=== PATIENT | male | born 1990 | race Caucasian/White ===

== ENCOUNTER 2017-05-20 03:12 | Inpatient (IN) | payer SELFPAY ==
[2017-05-20] MEDS ORDERED: NS 0.9% 1000 ML* 1,000 ML IV ONE (05:29)
[2017-05-20] MEDS ORDERED: Aspirin Low Dose CHEW TAB* 81 MG PO ONE (05:29)
[2017-05-20 06:18] LABS: Hematocrit 42 % (42-52); Hemoglobin 14.4 g/dl (14.0-18.0); Mean Corpuscular HGB Conc 34 g/dl (31-36); Mean Corpuscular Hemoglobin 29 pg (27-31); Mean Corpuscular Volume 85 fL (80-94); Mean Platelet Volume 9 um3 (7.4-10.4); Red Blood Count 4.97 10^6/ul (4.0-5.4); Red Cell Distribution Width 13 % (10.5-15); White Blood Count 7.8 10^3/ul (3.5-10.8)
[2017-05-20 06:31] LABS: BUN/Creatinine Ratio 16.9 (8-20); Calcium 9.1 mg/dL (8.6-10.3); EGFR African American 169.9 (>60); EGFR Non-African American 132.1 (>60); Globulin 3.6 g/dL (2-4); Potassium 3.4 mmol/L (3.5-5.0); Total Bilirubin 0.8 mg/dL (0.2-1.0); Total Protein 7.6 g/dL (6.4-8.9)
[2017-05-20 06:38] LABS: Troponin I 12.82 ng/mL (<0.04)
[2017-05-20] MEDS ORDERED: Metoprolol Tartrate TAB* 25 MG PO ONE (07:29)
--- NOTE | 2017-05-20 07:38 | ED ---
Mona Aguilera Rebecca, scribed for Selina Jackson MD on 05/20/17 at 0530 . HPI Chest Pain - HPI Summary HPI Summary: Pt is a 27 y/o M who presents to ED c/o CP. Pain began 3 days ago and has been intermittent since onset, worsening this morning at 0100. Pain is in the midsternal region without radiation and is currently not present, though earlier it was moderate, ranked 6/10 in triage and characterized as sharp. Sx aggravated by deep breaths, cough and when a chiropractor pushed on his back, alleviated by nothing. Additionally c/o vomiting, nonproductive cough, fatigue and fever. Reports fever was between 101 and 102. Denies LE pain. SHx smoker (1 PP month). - History of Current Complaint Chief Complaint: EDChestPainROMI Time Seen by Provider: 05/20/17 04:56 Hx Obtained From: Patient, Family/Clinical Laboratory Aide - Onset/Duration: Started Days Ago - 3 days ago, Still Present, Worse Since - This morning at 0100 Timing: Intermittent Initial Severity: Moderate - 6/10 Current Severity: None Pain Intensity: 6 - In triage Pain Scale Used: 0-10 Numeric Chest Pain Location: Mid Sternal Chest Pain Radiates: No Character: Sharp/Stabbing Aggravating Factor(s): Deep Breaths, Other: - Cough, chiropractor applying pressure to back Alleviating Factor(s): Nothing Associated Signs and Symptoms: Positive: Fever, Nonproductive Cough, Vomiting, Other: - Fatigue. Negative: Calf Pain/Swelling - Risk Factors TAD Risk Factors: Smoking AMI/ACS Risk Factors: Smoking - Allergy/Home Medications Allergies/Adverse Reactions: Allergies Allergy/AdvReac Type Severity Reaction Status Date / Time No Known Allergies Allergy Verified 05/20/17 03:18 PMH/Surg Hx/FS Hx/Imm Hx Previously Healthy: Yes Endocrine/Hematology History: Denies: Hx Diabetes Cardiovascular History: Denies: Hx Coronary Artery Disease, Hx Hypertension Infectious Disease History: No Infectious Disease History: Denies: Traveled Outside the [place] in Last 30 Days - Family History Known Family History: Negative: Cardiac Disease - Social History Alcohol Use: None Substance Use Type: Reports: None Smoking Status (MU): Current Some Day Smoker - 1 PP month Review of Systems Positive: Fever, Fatigue Positive: Chest Pain - 3 days, intermittent Positive: Cough Positive: Vomiting Positive: Other - Denies LE pain Neurological: Negative Psychological: Normal All Other Systems Reviewed And Are Negative: Yes Physical Exam Triage Information Reviewed: Yes Vital Signs On Initial Exam: Initial Vitals Temp Pulse Resp BP Pulse Ox 99.2 F 78 20 126/81 100 05/20/17 03:16 05/20/17 03:16 05/20/17 03:16 05/20/17 03:16 05/20/17 03:16 Vital Signs Reviewed: Yes Appearance: Positive: No Pain Distress - pain free when lying still, worse with movement, Well-Nourished, Ill-Appearing Skin: Positive: Skin Color Reflects Adequate Perfusion, Cold, Diaphoretic Head/Face: Positive: Normal Head/Face Inspection Eyes: Positive: Conjunctiva Clear ENT: Positive: Normal ENT inspection Neck: Positive: Supple Respiratory/Lung Sounds: Positive: Clear to Auscultation, Breath Sounds Present , Other - No respiratory distress Cardiovascular: Positive: RRR, Pulses are Symmetrical in both Upper and Lower Extremities, Other - Brisk capillary refill. Negative: Murmur, Rub, Leg Edema Left, Leg Edema Right Abdomen Description: Positive: Nontender, No Organomegaly, Soft. Negative: Distended, Guarding, Splenomegaly Bowel Sounds: Positive: Present Musculoskeletal: Positive: Strength/ROM Intact, Other - no calf tenderness. Negative: Edema Left, Edema Right Neurological: Positive: Sensory/Motor Intact, Alert, Oriented to Person Place, Time, Speech Normal. Negative: Facial Droop, Focal Deficit @, Slurred Speech Psychiatric: Positive: Normal Diagnostics - Vital Signs Vital Signs Temp Pulse Resp BP Pulse Ox 05/20/17 03:52 100.0 F 73 17 123/78 99 05/20/17 03:16 99.2 F 78 20 126/81 100 - Laboratory Lab Results: Lab Results 05/20/17 Range/Units 02:45 Influenza A (Rapid) Negative (Negative) Influenza B (Rapid) Negative (Negative) Result Diagrams: 05/20/17 05:55 05/20/17 05:55 Lab Statement: Any lab studies that have been ordered have been reviewed, and results considered in the medical decision making process. - Radiology CXR Xray Interpretation: No Acute Changes - No PNA Radiology Interpretation Completed By: ED Physician - EKG 0335 Cardiac Rate: NL - 80 bpm EKG Rhythm: Sinus Rhythm EKG Interpretation: Nl AV/IV CT, nl QTC, nl axis, no acute changes 0639 Cardiac Rate: NL - 75 bpm EKG Rhythm: Sinus Rhythm EKG Interpretation: nl AV/IV CT, nl axis, nl QTC, no acute changes EKG Comparison: No Significant Change - from EKG at 0335 Re-Evaluation - Re-Evaluation First Eval Re-Evaluation Time: 06:30 - trop is elevated, pt remains pain free, repeat EKG Change: Unchanged Chest Pain Course/Dx - Course Assessment/Plan: Pt is a 27 y/o M who presents to ED c/o intermittent, sharp midsternal CP for 3 days. Pain is currently not present, though earlier it was moderate, ranked 6/10 in triage and characterized as sharp. Sx aggravated by deep breaths, cough and when a chiropractor pushed on his back, alleviated by nothing. Additionally c/o vomiting, nonproductive cough, fatigue and fever. Reports fever was between 101 and 102. Denies LE pain. SHx smoker (1 PP month). Troponin of 12.82. D-Dimer of 406. Both EKGs reveals no acute findings. CXR shows no PNA. Discussed care of pt with Dr. Sood who reports that this is not a STEMI and advised a consultation with Dr. Balbuena. Discussed care of pt with Dr. Gurwinder Balbuena at who advises admission, a CRP and sed rate and will consult the pt. Discussed care of pt with Dr. Sood again at who believes that this is likely myocarditis. Discussed care of pt with Dr. Miguel Gamino, hospitalist, who accepts pt for admission. Pt will be admitted to hospitalist services with a Dx of myocarditis. He understands and agrees. - Chest Pain Differential Diagnosis/HQI/PQRI: Acute [place], ACS, Chest Wall, GI Disease, Lower Respiratory Infection, Pulmonary Embolism - Diagnoses Provider Diagnoses: Myocarditis - Provider Notifications Discussed Care Of Patient With: Angel Sood Time Discussed With Above Provider: 06:52 Instructed by Provider To: Other - Reports that this is not a STEMI and advised a consultation with Dr. Balbuena. Discussed care of pt with Dr. Gurwinder Balbuena at 0655 who advises admission and will consult the pt. Discussed care of pt with Dr. Stefek again at 0703 who believes that this is likely myocarditis. Discussed care of pt with Dr. Miguel Gamino, hospitalist, at 0705 who accepts pt for admission. Discharge - Discharge Plan Condition: Good Disposition: ADMITTED TO [facility] documentation as recorded by the Mona garcia Rebecca accurately reflects the service I personally performed and the decisions made by me, Selina Jackson MD.
[2017-05-20] MEDS ORDERED: Ibuprofen TAB* 600 MG PO PRN (07:45)
[2017-05-20] MEDS ORDERED: PROCHLORPERAZINE INJ 5 MG/ML 2 ML VIAL IV PRN (07:45)
[2017-05-20 07:55] LABS: Troponin I 10.67 ng/mL (<0.04)
[2017-05-20] MEDS ORDERED: Potassium Chlor TAB* 20 MEQ TAB.ER PO ONE (07:58)
[2017-05-20] MEDS ORDERED: Enoxaparin(*) 80 MG/0.8 ML SYR SUBCUT SCH (08:00)
[2017-05-20] MEDS ORDERED: Iohexol 350* (CONTRAST) 500 ML MDV IV ONE (08:18)
--- NOTE | 2017-05-20 08:18 | RAD ---
HISTORY: Chest pain, cough, fever COMPARISONS: None VIEWS:1: Single frontal portable view of the chest at 5:45 AM FINDINGS: LINES AND TUBES: None. CARDIOMEDIASTINAL SILHOUETTE: The cardiomediastinal silhouette is normal for portable technique. PLEURA: The costophrenic angles are sharp. No pleural abnormalities are noted. LUNG PARENCHYMA: The lungs are clear. ABDOMEN: The upper abdomen is clear. There is no subphrenic gas. BONES AND SOFT TISSUES: No bone or soft tissue abnormalities are noted. IMPRESSION: NO ACTIVE CARDIOPULMONARY DISEASE.
--- NOTE | 2017-05-20 08:31 | RAD ---
HISTORY: Chest pain, positive d-dimer COMPARISONS: None TECHNIQUE: Multiple contiguous axial CT scans of the chest were obtained after the administration of nonionic intravenous contrast, timed to the pulmonary arterial phase of contrast enhancement.. Coronal and sagittal multiplanar reformations are also submitted for review. FINDINGS: NECK AND THYROID: The lower neck and thyroid are unremarkable. CHEST WALL: There is no lower cervical, axillary, or supraclavicular lymphadenopathy by size criteria. HEART AND PERICARDIUM: The heart is unremarkable. AORTA AND PULMONARY VASCULATURE: There is no pulmonary arterial filling defect to suggest pulmonary embolism. There is no linear filling defect within the aorta to suggest aortic dissection. MEDIASTINUM: There is no mediastinal lymphadenopathy by size criteria. JERALD: There is no hilar lymphadenopathy by size criteria. AIRWAY AND ESOPHAGUS: The airway is unremarkable, without endobronchial filling defect. The esophagus is grossly normal. LUNG PARENCHYMA: The lungs are clear. PLEURA: No pleural abnormalities are noted. UPPER ABDOMEN: The upper abdomen is unremarkable. BONES AND SOFT TISSUES: Unremarkable OTHER: None. IMPRESSION: NO PULMONARY ARTERIAL FILLING DEFECT TO SUGGEST PULMONARY EMBOLISM
--- NOTE | 2017-05-20 08:49 | RAD ---
HISTORY: Transaminitis COMPARISONS: None TECHNIQUE: Multiple transverse and longitudinal ultrasound images were obtained of the right upper quadrant of the abdomen using grayscale and color Doppler imaging. FINDINGS: LIVER: The liver is normal in shape, size, contour, and echogenicity. There are no focal parenchymal masses. There is normal hepatopedal flow of the portal vein on Doppler imaging. BILIARY TREE: There is no intrahepatic or extrahepatic biliary dilatation. The common duct measures 0.3 cm. GALLBLADDER: The gallbladder is well-visualized. There is no cholelithiasis, gallbladder wall thickening, pericholecystic fluid, or sonographic Easton sign. PANCREAS: The head of the pancreas is unremarkable. The tail of the pancreas is not well visualized secondary to overlying bowel gas. RIGHT KIDNEY: The right kidney is mildly echogenic compared to the liver. There is no hydronephrosis or nephrolithiasis. The right kidney measures 12 x 6 x 5.5 cm. AORTA AND IVC: The aorta and IVC are unremarkable. FLUID: There are no pleural effusions. There is no free fluid within the hepatorenal recess. OTHER FINDINGS: None. IMPRESSION: ECHOGENIC RIGHT KIDNEY SUGGESTIVE OF MEDICAL RENAL DISEASE. OTHERWISE UNREMARKABLE ULTRASOUND OF THE RIGHT UPPER QUADRANT
[2017-05-20] MEDS: NS 0.9% 1000 ML* 1,000 ML IV SCH ×2 (09:20→17:35)
[2017-05-20] MEDS: Morphine INJ* 2 MG/ML 1 ML SYRINGE IV PRN ×2 (10:19→17:31)
--- NOTE | 2017-05-20 10:37 | HP ---
HISTORY AND PHYSICAL: DATE OF ADMISSION: 05/20/17 TIME OF EVALUATION: 7:15 a.m. PRIMARY CARE PROVIDER: The patient has no primary care provider. CHIEF COMPLAINT: Chest pain. HISTORY OF PRESENT ILLNESS: Mr. Barbosa is a 27-year-old male with a past medical history of migraines that presented to the emergency room with complaints of chest pain. He states he was in his usual state of health until 3 days ago when he started to have fever, body aches, and headaches. He took some Tylenol with relief, but he developed retrosternal chest pain, intermittent, stabbing in nature with no radiation. He states that initially the pain was mild and over time it became more severe up to an 8/10. He noticed that the pain would get worse with deep inspiration and also while he was performing heavy work. 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 He took Tylenol and ibuprofen at home with partial improvement. Actually last night, he had another episode of chest pain and was planning to come to the emergency room, but he took ibuprofen, the pain resolved , he was feeling better, so he decided to stay home, but around 1 in the morning , the pain returned. It was severe, so he decided to come to the emergency room then. He states that in the past he would have brief episodes of chest pain while working, but they would resolve quickly and he never sought medical attention for it. He denies dyspnea, palpitations, lower extremity edema, orthopnea, or PND. He did have some nausea and vomiting when the symptoms started, but he denies diarrhea or urinary complaints. The patient states that he works outside. End of last year, he remembers his found a tick embedded on his skin. He states they were able to remove it, but he had erythematous rash on the area on and off for "a while." This year, he does not remember finding any ticks on his body. PAST MEDICAL HISTORY: Migraines. ALLERGIES: No known drug allergies. MEDICATIONS: None, he only took Tylenol and ibuprofen for the past couple of days. FAMILY HISTORY: He states his parents are alive and well. His mother has hypertension and he is not aware of any other medical problems in his family. SOCIAL HISTORY: Patient is a smoker less than 1 pack per month for 8 years. No history of alcohol, or drug use. The patient is Carlos, works as a garcia. Surrogate decision maker is his , Marline Barbosa, phone number is [phone]. REVIEW OF SYSTEMS: A 14-point review of systems was performed and all the pertinent negative and positive findings are in the HPI. PHYSICAL EXAMINATION GENERAL: The patient is a young, well-built male, lying in the ER stretcher, not in acute distress. VITAL SIGNS: Temperature is 100.0, heart rate is 76, respiratory rate is 16, oxygen saturation 98% on room air, blood pressure is 125/75. HEENT: Pupils are equal. Moist mucous membranes. CVS: Normal S1 and S2. Regular rate and rhythm. No murmurs. Pericardial rub is present. CHEST: Breath sounds present bilaterally with no added sounds. When I asked the patient to move forward so I could listen to his lungs, he did complain of a mild chest pain that resolved when he laid back on the stretcher. ABDOMEN: Soft, nontender, nondistended, bowel sounds are present. EXTREMITIES: Showed no clubbing, cyanosis, or edema. NEUROLOGIC: He is alert, awake, oriented x3. Able to move all 4 extremities. LABORATORY AND IMAGING DATA: The patient had a CBC that showed a WBC of 7.8, hemoglobin of 14.4, hematocrit of 42, platelets of 117 with 70% neutrophils, 11 % lymphocytes, and 17.5% monocytes. INR was 1.06. D-dimer was 406. Chemistry showed sodium of 130, potassium 3.4, chloride of 96, bicarb of 27, BUN of 12, creatinine of 0.71, glucose of 107. Lactic acid of 0.5, calcium 9.1. LFTs showed a total bilirubin of 0.8, AST of 107, ALT of 67, alk phos of 71, CPK of 737, CK-MB of 67, troponin of 12.8. Influenza rapid test was negative. EKG; first EKG done on May 20 at 3:35 a.m. showed sinus rhythm at 80 beats per minute with ST elevation on the anterior leads suggestive of early repolarization. Second EKG done the same date at 6:39 a.m. showed sinus rhythm at 75 beats per minute and the ST elevations are still present, though less pronounced especially in V2. ASSESSMENT AND PLAN: Mr. Barbosa is a 27-year-old healthy male who presents to the emergency room with complaints of fever, body aches, and chest pain, found to have positive troponin and EKG changes suggestive of myopericarditis. 1. Chest pain/probable myopericarditis. I suspect the patient might have a viral process or considering his history of ticks exposure, Lyme disease. He could have other etiologies including autoimmune myopericarditis, but I believe this is on a lower level on the differential list. The patient will be admitted to telemetry floor. We are going to check serial troponins, sedimentation rate, CRP, Lyme serology, and blood cultures. The patient's presentation with fever, body aches, nausea, vomiting, followed by chest pain and the thrombocytopenia on his CBC, the absolute lymphopenia with monocytosis and the transaminitis suggest an infectious process. I believe it is prudent to start ceftriaxone empirically until we get the result of the serology for possible myocarditis. This case was discussed by the ED provider, (Dr. Huddleston) with tool repair technician document control specialist (Dr. Sood and Dr. Balbuena) and as per her report, they believe that this does not represent an ST elevation myocardial infarction. Dr. Balbuena has recommended that we start Lovenox, aspirin, and beta-blockers for now and he will see the patient in consultation. As per Dr. Huddleston, Dr. Balbuena also recommended a CTA to rule out pulmonary embolism, as the patient presents with chest pain and has a positive D- dimer. We are going to continue to trend his troponins and we are going to request an echocardiogram. With the positional component of his pain, worse with deep inspiration and worse when he leans forwards, I believe he also has a component pericarditis and not only myocarditis. He will receive symptomatic treatment with Tylenol, low dose ibuprofen, and morphine for severe pain. 2. Transaminitis. I believe, this is secondary to the viral process, but I am going to check hepatitis serology and right upper quadrant ultrasound for further evaluation. 3. Code status is full. 4. Deep vein thrombosis prophylaxis. The patient had a score of 0 on the deep vein thrombosis prophylaxis risk assessment guide, but he is already started on Lovenox. TIME SPENT: Approximately, 55 minutes were spent with the patient and interview, medical records review, physical examination to complete this admission, more than half of this time was spent [id number] with the patient and coordination of care. [id number]/[facility] #: [id number] TRINH
[2017-05-20 10:50] LABS: Urine Bilirubin Negative (Negative); Urine Glucose Negative (Negative); Urine Nitrite Negative (Negative)
[2017-05-20 11:04] LABS: Benzodiazepine Urine Screen None Detected (None Detect)
[2017-05-20] MEDS: Al Hydrox/Mg Hydrox/Simet LIQ* 30 ML UDC PO PRN ×2 (12:31→17:31)
[2017-05-20] MEDS: Ibuprofen TAB* 600 MG PO SCH ×2 (12:31→20:53)
[2017-05-20] MEDS: Colchicine* 0.6 MG TAB PO SCH ×2 (13:24→20:53)
--- NOTE | 2017-05-20 16:04 | CONS ---
CARDIOLOGY CONSULTATION: DATE OF CONSULT: 05/20/17 REFERRING PHYSICIAN: Malgorzata Cast MD REASON FOR CARDIOLOGY CONSULTATION: Chest pain and elevated troponin. HISTORY OF PRESENT ILLNESS: I was kindly asked to see this patient who has had chest pain for 2 days with clear pleuritic component and today is found to have elevated troponin to 12.82. Mr. Barbosa is a 27-year-old [facility] man, who does not receive regular medical evaluation and has no known significant medical problems, who began having a headache 2 to 3 days ago. Of note, he is accompanied by his and 10-month- old son in the hospital ayala room. Two days ago in the morning, he began to have very slight chest pain and he noted a fever at that time. When he was working, [employer], he felt his chest pain became much worse and he went to bed. He had a similar episode for about 1 to 2 years ago with very slight chest pain, which apparently resolved on its own. In any case, the patient noted 2 days ago that he was very sore in his hips, neck and shoulders and went to see his chiropractor yesterday, who told him to rest. The patient took ibuprofen, by his description it sounds like 400 mg last night and he had significant improvement in his chest pain from 8/10 to 2/10. However, after he went to bed, he woke up at 1 a.m. this morning with severe chest pain up to 10/ 10. He came to the emergency room. There was initial concern by the emergency medicine physician that there was a STEMI; however, after consultation with the exhaust emissions automotive technician, they felt that there was not a STEMI. The patient currently feels that his chest pain is improved and has received morphine. He feels that his chest pain currently is 2/10 at rest; however, when he takes a deep inspiration, it goes up to 8/10 and that has been pretty characteristic of his chest pain over the past 2 days. His chest pain is located in the midsternal region without radiation and he has some mild shortness of breath. PAST MEDICAL HISTORY: None. No regular medical care. 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 He did not require surgery but did have sutures. OUTPATIENT MEDICATIONS: None. He has not seen a physician for at least 8 years. ALLERGIES: Allergies to medications are none. He denies shrimp, sea food, or dye allergy. FAMILY HISTORY: His mother has a history of hypertension and she is in upper 50s. No family history of cancer, NM, diabetes, stroke. SOCIAL HISTORY: He smokes less than 1 pack of cigarettes per month and has smoked cigarettes for 8 years. He does not abuse alcohol nor use illicit drugs. He is [place]. He has not graduated from high school. 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 This is very strenuous work by his description. He is and has 4 children, ages 5 years to 10 months. REVIEW OF SYSTEMS: He denies personal history of stroke, TIA, cancer, vomiting up blood, coughing up blood, bright red blood per rectum, bleeding stomach ulcers, renal calculi, cholelithiasis, asthma, emphysema, pneumonia, tuberculosis, sleep apnea, home oxygen use, diabetes, hypertension, prior NM, congestive heart failure, cardiac surgery, cardiac murmurs. He denies palpitations. He had mild chest pain 1 to 2 years ago, which lasted for about a year and self resolved. He did not seek medical attention at that time. He denies any psychiatric illnesses. He denies lupus, psoriasis, seizures, Parkinson's disease, myasthenia gravis, thyroid disorders, liver disorders, kidney disorders, claudication symptoms, pulmonary emboli, deep venous thrombosis, peripheral arterial disease, heartburn symptoms, peripheral edema. All other review of systems are negative except as described above. PHYSICAL EXAMINATION: Height 5 feet 11 inches, weight 146 pounds. On general exam, he is a pleasant thin man in no acute distress, unless he takes a deep breath when it is clear that his pain in his chest becomes worse. Temperature last night at 3.52 a.m. was 100 degrees Fahrenheit, it is currently 98.9 degrees Fahrenheit, pulse 75, blood pressure 127/78, O2 saturation 99%. HEENT shows the cranium is normocephalic and atraumatic. He has dry mucosal membranes. Neck veins are not distended. There are no carotid bruits. Visible skin is warm and perfused. Affect appropriate. He appears oriented. No significant kyphoscoliosis on back exam. Lungs are clear to auscultation. No wheezes, no rales. Cardiac Exam: S1, S2. Regular rate. There is a clear 3 component pericardial friction rub heard, best at the apex. There are no murmurs nor gallops. PMI is nondisplaced. Abdomen: Soft. He does have tenderness below his xiphoid process, otherwise benign abdominal exam. Extremities without significant edema. Pulses appear intact. DIAGNOSTIC STUDIES/LAB DATA: A 12-lead EKG completed at 3:35 a.m. showed sinus rhythm at 80 beats per minute with OK segment elevation in aVR, OK segment depression in leads II and aVF as well as a suggestion of OK segment depression in the lateral leads. There is also early repolarization pattern in the septal leads, but I do not see evidence of anterior wall NM. Repeat EKG completed 06/29 at 6:39 shows some improvement in the OK segment depression. Sodium 130, potassium 3.4, chloride 96, bicarbonate 27, BUN 12, creatinine 0.71 , glucose 107. AST 107, ALT 67. Troponin is 12.82, followed by 10.67, followed by 9.53, ESR 25, high sensitivity CRP 133.79, total CK 737, CKMB 67.1. INR 1.06, D-dimer 406. White blood cell count 7.8, hematocrit 42, platelet count 117, but no prior platelet count to compare with. The patient had a CTA of his chest earlier today, which shows no pulmonary arterial filling defect to suggest pulmonary embolism. Per the radiologist report, there was no linear filling defect within the aorta to suggest aortic dissection and the heart and pericardium section is described as the heart is unremarkable. IMPRESSION: Mr. Barbosa is a 27-year-old gentleman with vague chest pain 1 to 2 years ago for about a year, which self-resolved. He now presents with recent headache, chest pain and abdominal discomfort. He has myopericarditis including by history, physical exam, response to NSAID therapy, electrocardiographically and by inflammatory markers. I have discussed this in detail with the patient and his and I am making the following recommendations with which they are in agreement. RECOMMENDATIONS: 1. Given that acute coronary syndrome seems unlikely, I think it is reasonable to discontinue aspirin, beta tricia, Lovenox, and he will have DVT prophylaxis as per the hospitalist medicine physician. 2. Colchicine 1 to 2 mg for the first day, then 0.5 mg to 1 mg daily for 3 months to help decrease recurrences of pericarditis in the future (especially as he may have had myopericarditis a year ago by his description as above). 3. Ibuprofen 600 mg p.o. t.i.d. with PPI for 1 month, then may take p.r.n. for symptom control. 4. We will check echocardiogram and exercise Myoview nuclear rest, stress scan to evaluate for wall motion abnormality, pericardial effusion, valvular function , and underlying ischemic burden to risk stratify. 5. We would recommend no strenuous activity until the patient is symptom free and has normal inflammatory markers including normalization of his D-dimer, ESR and high sensitivity CRP, which will likely take weeks to resolve. 6. Recommend discontinuation of cigarette use. 7. We would recommend following daily EKGs while the patient is in the hospital. 8. I am happy to follow up with the patient after his discharge if he would like that. 9. Other management as per the hospitalist medicine service and I have spoken with the attending physician Dr. Cast. Many thanks for this kind cardiac consultation opportunity. We look forward to following the patient with you. Please do not hesitate to contact me if you have any questions or concerns regarding the patient's cardiovascular consultative care. [id number]/[facility] #: [id number] TRINH
[2017-05-20] MEDS ORDERED: Metoprolol Tartrate TAB* 25 MG PO SCH (21:00)
[2017-05-21] MEDS: NS 0.9% 1000 ML* 1,000 ML IV SCH ×3 (01:53→17:35)
[2017-05-21] MEDS: Morphine INJ* 2 MG/ML 1 ML SYRINGE IV PRN (03:32)
[2017-05-21] MEDS: Ibuprofen TAB* 600 MG PO SCH ×3 (05:04→20:47)
[2017-05-21] MEDS: Acetaminophen TAB* 325 MG PO PRN ×2 (05:15→14:48)
[2017-05-21 05:54] LABS: Hematocrit 39 % (42-52); Hemoglobin 13.3 g/dl (14.0-18.0); Mean Corpuscular HGB Conc 34 g/dl (31-36); Mean Corpuscular Hemoglobin 29 pg (27-31); Mean Corpuscular Volume 85 fL (80-94); Mean Platelet Volume 10 um3 (7.4-10.4); Red Blood Count 4.57 10^6/ul (4.0-5.4); Red Cell Distribution Width 14 % (10.5-15); White Blood Count 7.7 10^3/ul (3.5-10.8)
[2017-05-21 06:10] LABS: Albumin 3.3 g/dL (3.2-5.2); BUN/Creatinine Ratio 11.4 (8-20); C Reactive Protein 129.21 mg/L (< 5.00); Calcium 8.5 mg/dL (8.6-10.3); EGFR African American 172.7 (>60); EGFR Non-African American 134.3 (>60); Globulin 3.2 g/dL (2-4); Potassium 4.1 mmol/L (3.5-5.0); Total Bilirubin 0.7 mg/dL (0.2-1.0); Total Protein 6.5 g/dL (6.4-8.9)
[2017-05-21 06:36] LABS: Erythrocyte Sed Rate 37 mm/Hr (0-14)
[2017-05-21] MEDS: Omeprazole CAP* 20 MG PO SCH (07:16)
[2017-05-21] MEDS: Colchicine* 0.6 MG TAB PO SCH ×2 (08:31→20:47)
--- NOTE | 2017-05-21 08:54 | RAD ---
HISTORY: Chest pain, myocarditis COMPARISONS: CT dated May 20, 2017 VIEWS: 4: Frontal dual-energy and lateral views of the chest. FINDINGS: CARDIOMEDIASTINAL SILHOUETTE: The cardiomediastinal silhouette is normal. JERALD: The jerald are normal. PLEURA: The costophrenic angles are sharp. No pleural abnormalities are noted. LUNG PARENCHYMA: There has been interval development of patchy alveolar opacification of the right lower lung near the cardiophrenic angle ABDOMEN: The upper abdomen is clear. There is no subphrenic gas. BONES AND SOFT TISSUES: No bone or soft tissue abnormalities are noted. OTHER: None. IMPRESSION: RIGHT LOWER LUNG ATELECTASIS
--- NOTE | 2017-05-21 10:57 | ECHO ---
Patient: AJIT SOMMERS [facility] Rec#: [id number] : 1990 Date: 05/21/2017 Age: 27y Height: 180.34 cm / 71.0 in Weight: 68.04 kg / 150.0 lbs Sex: M BSA: 1.87 Room#: 440 Admit Date#: 05/20/2017 Type: Inpatient Referring: Malgorzata Laughlin MD Reading: Gurwinder Balbuena MD Accounts Payable Bookkeeper: Karol Thomas RDCS,RDMS Transthoracic Echocardiogram Indication: CP BP: 113/59 HR: 68 Rhythm: NSR Findings History: Migraines Technical Comments: The study quality is good. Completed 814 Left Ventricle: The left ventricular chamber size is normal. Global left ventricular wall motion and contractility are within normal limits. There is normal left ventricular systolic function. The ejection fraction is 61% when calculated by Teichholz method. Normal left ventricular diastolic filling is observed. Left Atrium: The left atrial chamber size is normal.on 2D imaging. Right Ventricle: The right ventricular chamber size and systolic function are within normal limits. Right Atrium: The right atrial cavity size is normal.on 2D imaging. Aortic Valve: The aortic valve is trileaflet. Systolic excursion of the aortic valve is normal. There is no evidence of aortic regurgitation. There is no evidence of aortic stenosis. Mitral Valve: The mitral valve leaflets appear normal. There is no evidence of mitral regurgitation. Tricuspid Valve: The tricuspid valve leaflets are normal. There is trace tricuspid regurgitation. No pulmonary hypertension is noted. Pulmonic Valve: The pulmonic valve appears normal. There is a trace pulmonic regurgitation. There is no pulmonic stenosis. Pericardium: There is no significant pericardial effusion. Aorta: The aortic root appears normal. There is no dilatation of the aortic arch. Pulmonary Artery: The main pulmonary artery appears normal. Venous: The inferior vena cava appears normal in size. There is an approximate 50% respiratory change in the inferior vena cava dimension. Conclusions There is normal left ventricular systolic function. The calculated ejection fraction is 61%. Global left ventricular wall motion and contractility are within normal limits. Normal cardiac chamber sizes. Functionally benign heart valves. There is no significant pericardial effusion. There is no prior echocardiogram available to compare with at this time. Measurements Name Value Normal Range RVIDd (AP) 2D 2.7 cm (0.9 - 2.6) IVSd (2D) 0.9 cm (0.6 - 1) LVPWd (2D) 1 cm (0.6 - 1) LVIDd (2D) 5 cm (3.6 - 5.4) LVIDs (2D) 3.3 cm - LV FS (2D) 33 % (25 - 45) EF Teichholz (2D) 61 % - Aortic Annulus 2 cm (1.4 - 2.6) Ao root diameter (2D) 2.8 cm (2.1 - 3.5) Ascending Ao 2.3 cm (2.1 - 3.4) Aortic arch 2.4 cm (1.8 - 3.4) LA dimension (AP) 2D 3.7 cm (2.3 - 3.8) LAd ISD 4CH 5 cm (2.9 - 5.3) Name Value Normal Range LA ESV SP 4CH (A/L) 85.96 ml - LA ESV SP 2CH (A/L) 71.88 ml - LA ESV BP (A/L) 79.36 ml - LA ESV BP (A/L) index 42 ml/m2 - LA ESV SP 4CH (MOD) 80.2 ml - LA ESV SP 2CH (MOD) 66.71 ml - Name Value Normal Range MV E-wave Vmax 0.8 m/sec - MV deceleration time 186 msec - MV A-wave Vmax 0.4 m/sec - MV E:A ratio 2.4 ratio - P. vein S-wave Vmax 0.6 m/sec - P. vein D-wave Vmax 0.7 m/sec - P. vein S:D Vmax ratio 0.9 ratio - P. vein A-wave duration 120 msec - LV septal e' Vmax 0.09 m/sec - LV lateral e' Vmax 0.15 m/sec - LV E:e' septal ratio 9 ratio - LV E:e' lateral ratio 5.4 ratio - Name Value Normal Range AV Vmax 1.5 m/sec - AV VTI 31.3 cm - AV peak gradient 9 mmHg - AV mean gradient 4.7 mmHg - LVOT Vmax 1.3 m/sec - LVOT VTI 26 cm - LVOT peak gradient 7 mmHg - LVOT mean gradient 3.3 mmHg - FRANCISCO Vmax 1.1 m/sec - Name Value Normal Range TR Vmax 2.8 m/sec - TR peak gradient 31 mmHg - RAP 3 mmHg - RVSP 34 mmHg - IVC diameter 2.1 cm - Name Value Normal Range PV Vmax 0.6 m/sec - PV peak gradient 1.4 mmHg -
--- NOTE | 2017-05-21 10:58 | PN ---
Subjective Date of Service: 05/21/17 Interval History: HOSPITALIST PROGRESS NOTE Patient seen and examined at bedside. He was not feeling well last night: had fever, body aches, dyspnea requiring supplemental O2, N/V. Feels better this AM. Ate breakfast with no problems, denies nausea, chest pain is improved. Family History: Unchanged from Admission Social History: Unchanged from Admission Past Medical History: Unchanged from Admission Objective Active Medications: Acetaminophen (Tylenol Tab*) 650 mg PO Q4H PRN PRN Reason: pain/fever Last Admin: 05/21/17 05:15 Dose: 650 mg Al Hydrox/Mg Hydrox/Simethicone (Maalox Plus*) 30 ml PO Q4H PRN PRN Reason: INDIGESTION Last Admin: 05/20/17 17:31 Dose: 30 ml Colchicine (Colcrys*) 0.6 mg PO TID [facility] Last Admin: 05/21/17 08:31 Dose: 0.6 mg Sodium Chloride (Ns 0.9% 1000 Ml*) 1,000 mls @ 125 mls/hr IV PER RATE [facility] Last Admin: 05/21/17 09:21 Dose: 125 mls/hr Ceftriaxone Sodium 2,000 mg/ (Sodium Chloride) 100 mls @ 200 mls/hr IVPB Q24H [facility] Last Admin: 05/21/17 08:31 Dose: 200 mls/hr Ibuprofen (Motrin Tab*) 600 mg PO Q8H [facility] Last Admin: 05/21/17 05:04 Dose: 600 mg Morphine Sulfate (Morphine Inj (Syringe)*) 2 mg IV Q4H PRN PRN Reason: SEVERE PAIN Last Admin: 05/21/17 03:32 Dose: 2 mg Omeprazole (Prilosec Cap*) 20 mg PO DAILY@0600 [facility] Last Admin: 05/21/17 07:16 Dose: 20 mg Prochlorperazine Edisylate (Compazine Inj*) 5 mg IV Q6H PRN PRN Reason: NAUSEA/VOMITING Last Admin: 05/20/17 17:42 Dose: 5 mg Vital Signs 05/21/17 05/21/17 07:05 07:11 Temperature 99.0 F Pulse Rate 71 Respiratory 20 18 Rate Blood Pressure 113/59 (mmHg) O2 Sat by Pulse 99 Oximetry Oxygen Devices in Use Now: Nasal Cannula Appearance: Young male lying in bed in NAD. Eyes: No Scleral Icterus Ears/Nose/Mouth/Throat: Mucous Membranes Moist Neck: Trachea Midline Respiratory: Symmetrical Chest Expansion and Respiratory Effort, Clear to Auscultation Cardiovascular: RRR - Normal S1 and S2, + rub Abdominal: NL Sounds; No Tenderness; No Distention Extremities: No Edema Neurological: Alert and Oriented x 3, NL Muscle Strength and Tone Lines/Tubes/Other Access: Clean, Dry and Intact Peripheral IV Nutrition: Taking PO's Result Diagrams: 05/21/17 05:03 05/21/17 05:03 Assess/Plan/Problems-Billing Assessment: Mr. Barbosa is a 27yo M with PMH of migraines, tobacco abuse, who presented to ED with c/o fever and chest pain, found to have myopericarditis. - Patient Problems (1) Acute myopericarditis Comment: - Suspect viral in nature, Lyme carditis on the differential. - Cardiology input appreciated - check daily EKG, for echo today and stress test tomorrow. - Continue colchicine and ibuprofen. - CTA chest was negative for PE. (2) Transaminitis Comment: - Trending down. - Likely associated with his viral infection. - Hep Bs Ag is positive - will request further confirmatory tests. - RUQ US showed no acute liver abnormalities. (3) DVT prophylaxis Comment: - Encourage ambulation.
[2017-05-22] MEDS: NS 0.9% 1000 ML* 1,000 ML IV SCH ×3 (01:33→20:27)
[2017-05-22] MEDS: Ibuprofen TAB* 600 MG PO SCH ×3 (05:51→20:27)
[2017-05-22] MEDS: Omeprazole CAP* 20 MG PO SCH (05:51)
[2017-05-22 05:53] LABS: Hematocrit 37 % (42-52); Hemoglobin 12.6 g/dl (14.0-18.0); Mean Corpuscular HGB Conc 34 g/dl (31-36); Mean Corpuscular Hemoglobin 29 pg (27-31); Mean Corpuscular Volume 86 fL (80-94); Mean Platelet Volume 10 um3 (7.4-10.4); Red Blood Count 4.31 10^6/ul (4.0-5.4); Red Cell Distribution Width 14 % (10.5-15); White Blood Count 7.2 10^3/ul (3.5-10.8)
[2017-05-22 06:02] LABS: Albumin 3.3 g/dL (3.2-5.2); BUN/Creatinine Ratio 13.1 (8-20); C Reactive Protein 173.38 mg/L (< 5.00); Calcium 8.6 mg/dL (8.6-10.3); EGFR African American 202.4 (>60); EGFR Non-African American 157.4 (>60); Globulin 3.1 g/dL (2-4); Potassium 3.8 mmol/L (3.5-5.0); Total Bilirubin 0.8 mg/dL (0.2-1.0); Total Protein 6.4 g/dL (6.4-8.9)
[2017-05-22 06:55] LABS: Erythrocyte Sed Rate 51 mm/Hr (0-14)
[2017-05-22] MEDS: Colchicine* 0.6 MG TAB PO SCH ×2 (09:16→20:27)
--- NOTE | 2017-05-22 10:48 | PN ---
Subjective Date of Service: 05/22/17 Interval History: HOSPITALIST PROGRESS NOTE Patient seen and examined at bedside. He feels better today. Minimal chest pain with deep inspiration. Still had fever yesterday, but no further N/V. Family History: Unchanged from Admission Social History: Unchanged from Admission Past Medical History: Unchanged from Admission Objective Active Medications: Acetaminophen (Tylenol Tab*) 650 mg PO Q4H PRN PRN Reason: pain/fever Last Admin: 05/21/17 14:48 Dose: 650 mg Al Hydrox/Mg Hydrox/Simethicone (Maalox Plus*) 30 ml PO Q4H PRN PRN Reason: INDIGESTION Last Admin: 05/20/17 17:31 Dose: 30 ml Colchicine (Colcrys*) 0.6 mg PO BID [facility] Last Admin: 05/22/17 09:16 Dose: 0.6 mg Sodium Chloride (Ns 0.9% 1000 Ml*) 1,000 mls @ 125 mls/hr IV PER RATE [facility] Last Admin: 05/22/17 01:33 Dose: 125 mls/hr Ceftriaxone Sodium 2,000 mg/ (Sodium Chloride) 100 mls @ 200 mls/hr IVPB Q24H [facility] Last Admin: 05/22/17 09:15 Dose: 200 mls/hr Ibuprofen (Motrin Tab*) 600 mg PO Q8H [facility] Last Admin: 05/22/17 05:51 Dose: 600 mg Morphine Sulfate (Morphine Inj (Syringe)*) 2 mg IV Q4H PRN PRN Reason: SEVERE PAIN Last Admin: 05/21/17 03:32 Dose: 2 mg Omeprazole (Prilosec Cap*) 20 mg PO DAILY@0600 [facility] Last Admin: 05/22/17 05:51 Dose: 20 mg Prochlorperazine Edisylate (Compazine Inj*) 5 mg IV Q6H PRN PRN Reason: NAUSEA/VOMITING Last Admin: 05/20/17 17:42 Dose: 5 mg Vital Signs 05/22/17 05/22/17 05/22/17 03:11 07:24 08:00 Temperature 98.5 F 98.5 F Pulse Rate 60 73 Respiratory 16 16 16 Rate Blood Pressure 121/70 120/72 (mmHg) O2 Sat by Pulse 95 97 Oximetry Oxygen Devices in Use Now: None Appearance: Young male sitting up in a chair in NAD. Eyes: No Scleral Icterus Ears/Nose/Mouth/Throat: Mucous Membranes Moist Neck: Trachea Midline Respiratory: Symmetrical Chest Expansion and Respiratory Effort, Clear to Auscultation Cardiovascular: RRR - Normal S1 and S2, + rub Extremities: No Edema Neurological: Alert and Oriented x 3, NL Muscle Strength and Tone Lines/Tubes/Other Access: Clean, Dry and Intact Peripheral IV Nutrition: Taking PO's Result Diagrams: 05/22/17 05:02 05/22/17 05:02 Assess/Plan/Problems-Billing Assessment: Mr. Barbosa is a 27yo M with PMH of migraines, tobacco abuse, who presented to ED with c/o fever and chest pain, found to have myopericarditis. - Patient Problems (1) Acute myopericarditis Comment: - Suspect viral in nature, Lyme carditis on the differential. - Echo showed normal EF and normal wall motion. - For first part stress today. - Continue colchicine and ibuprofen. - CTA chest was negative for PE. - ID consult requested. - Continue Ceftriaxone for now until Lyme serology result available. (2) Transaminitis Comment: - Trending down. - Likely associated with his viral infection. - Hep Bs Ag is positive - will request further confirmatory tests. - RUQ US showed no acute liver abnormalities. (3) DVT prophylaxis Comment: - Encourage ambulation.
--- NOTE | 2017-05-22 14:42 | CONS ---
CONSULTATION REPORT: DATE OF CONSULT: 05/22/17 REQUESTING PHYSICIAN: Dr. Cast. CONSULTING SERVICE: Infectious Disease. REASON FOR CONSULT: Mild pericarditis. IMPRESSION: 1. Three to four days of fevers, chills, myalgias, pleuritic chest pain, tronopin of 10. Transthoracic echocardiogram shows normal left ventricular function, normal left ventricular wall motion and contractility, no pericardial effusion. Taken together most consistent with myocarditis, most often a viral infection. There are care reports of Lyme myocarditis though they are difficult to prove and there is a weak case at best for Lyme causing this sort of thing. 2. Mild transaminitis and thrombocytopenia which is improving. 3. Elevated C-reactive protein. RECOMMENDATIONS: Agree with covering Lyme, we are awaiting the antibody as well as colchicine to prevent the next episode. I discussed with the patient that an extensive search for a viral etiology is usually not fruitful and difficult to make the case based on serology anyway. As long as he has continued to improve, I do not recommend further diagnostic testing. HISTORY OF PRESENT ILLNESS: A 27-year-old man admitted with chest pain and fever. He had been well until at the end of last week, he developed fever, chills, and diffuse body aches. No sore throat or sinus symptoms, did not know if anyone has been sick. He then developed mild chest pain which was progressive, worse with exertion. There was tightness in his chest and difficulty breathing, worse with deep breath. His chills at night persisted. He came to the hospital on 05/20/17. His influenza PCR was negative. Blood cultures are negative. CT of the chest was negative. Transthoracic echocardiogram with findings as noted above. He is having a stress test today. His AST was 100 on admission, is down to 30 today. His ALT was 70 on admission, is down to 50 today. Hemoglobin A1c was 5. His platelets were 117 on admission up to 137 today. He has had a hepatitis B surface antigen, which is pending. PAST MEDICAL HISTORY: Migraine headaches. MEDICATIONS: 1. Tylenol. 2. Colchicine 0.6 mg by mouth twice daily. 3. Ibuprofen every 8 hours. 4. Omeprazole. 5. Ceftriaxone 2 g a day. ALLERGIES: No known drug allergies. FAMILY HISTORY: Hypertension in his mother, otherwise both parents are alive and well. SOCIAL HISTORY: He is [employer]. He lives in [place]. He works in construction. Has a family at home, have all been well, has some tick contact. REVIEW OF SYSTEMS: All negative to a full review of systems except as noted above. PHYSICAL EXAM: Vital Signs: Temperature is 37, heart rate 70, respiratory rate 16, blood pressure 120/70, and O2 sat 97% on room air. General: He is awake, not in distress. Neurologic: He is oriented x3, follows all commands. HEENT: There is no conjunctival hemorrhage. Oropharynx without lesions. Neck : Supple without nuchal rigidity. Lymph Nodes: There is no cervical, supraclavicular, inguinal, axillary, or epitrochlear lymphadenopathy. Heart has regular rate and rhythm without murmurs, rubs, or gallops. Lungs are clear to auscultation bilaterally. Abdomen is soft, nontender, and nondistended. Skin : There is no rash or splinter hemorrhages. Musculoskeletal: There is no spine tenderness to palpation or joint synovitis. LABORATORY DATA: White blood cell count 7, hemoglobin 12, platelets 137. Creatinine 0.6. Bilirubin is 0.8. Please see impressions and recommendations outlined above which I have discussed with Dr. Cast. Thanks for asking me to see Mr. Barbosa in consultation. [id number]/[facility] #: [id number] [facility] MEDICAL CENTERCynthia
[2017-05-23] MEDS: Omeprazole CAP* 20 MG PO SCH (05:37)
[2017-05-23] MEDS: Ibuprofen TAB* 600 MG PO SCH ×2 (05:37→12:25)
[2017-05-23] MEDS: NS 0.9% 1000 ML* 1,000 ML IV SCH (06:11)
[2017-05-23 08:06] VITALS: BP 122/64
[2017-05-23] MEDS: Colchicine* 0.6 MG TAB PO SCH (08:20)
[2017-05-23] MEDS ORDERED: Regadenoson* 0.4 MG/5 ML SYRINGE ONE (10:19)
--- NOTE | 2017-05-23 12:25 | RAD ---
HISTORY: Chest pain COMPARISONS: None TECHNIQUE: A 1 day stress/rest myocardial perfusion study was performed, with pharmacologic stress. The stress portion was monitored by Dr. Malik. Gated SPECT imaging was performed, with CT-based attenuation correction DOSE: Stress: Technetium 99m tetrofosmin, 25.27 millicuries, injected at 10:27 AM on May 23, 2017 Rest: Technetium 99m tetrofosmin, 10.2 millicuries, injected at 7:50 AM on May 22, 2017 Pharmacologic agent: Lexiscan FINDINGS: CARDIAC MONITORING: No EKG criteria ischemia with stress EF: 60 % TID: 1.23 MOTION: Normal motion, with normal wall thickening. PERFUSION: There is a fixed defect of the lateral wall that resolves with attenuation correction, and is likely artifactual. There are no definite fixed or reversible perfusion defects OTHER: There is a small right pleural effusion IMPRESSION: NO DEFINITE FIXED OR REVERSIBLE PERFUSION DEFECTS ASSESSMENT: LOW RISK. Based on imaging criteria from ACC/AHA 2002. Guideline Update for the Management of Patient's with Chronic Stable Angina, table 23. Noninvasive Risk Stratification.
--- NOTE | 2017-05-23 18:28 | PN ---
Progress Note - Progress Note Date of Service: 05/23/17 Note: Attempted several times to call patient o moss picker doxycycline. Will attempt again in AM.
--- NOTE | 2017-05-24 12:33 | DS ---
CC: LILIANE Whalen; Dr. Phoenix Tellez; Dr. Gurwinder Balbuena * DISCHARGE SUMMARY: DATE OF ADMISSION: 05/20/17 DATE OF DISCHARGE: 05/23/17 ADMITTING DIAGNOSES: 1. Chest pain. 2. Mild pericarditis. 3. Transaminitis. DISCHARGE DIAGNOSES: 1. Chest pain. 2. Mild pericarditis. 3. Transaminitis. HOSPITAL COURSE: The patient is a 27-year-old who came in with onset of chest pain. Please see H and P for further details. The patient was seen in consult by Cardiology as well as Infectious Disease. The patient did have nuclear stress test, which is negative. There was concern for possible Lyme disease. The patient also had a transthoracic echocardiogram, which was reviewed, normal. By the day of discharge, the patient's pain had resolved. STUDIES DONE WHILE IN THE HOSPITAL: 1. Chest x-ray, 05/20/17, impression: No active cardiopulmonary disease. 2. CTA of the chest, 05/20/17, impression: No pulmonary arterial filling defect to suggest pulmonary embolism. 3. Transthoracic echocardiogram, 05/20/17: Normal left ventricular systolic function, calculated ejection fraction 61%, global left ventricular wall motion and contractility within normal limits, normal cardiac chamber size, functionally benign heart valves, no significant pericardial effusion, no prior echocardiogram for comparison. 4. Liver ultrasound, 05/20/17, impression: Echogenic right kidney suggests medical renal disease, otherwise unremarkable ultrasound of the right upper quadrant. 5. Nuclear medicine scan, 05/23/17, impression: No definite fixed or reversible perfusion defects. DISCHARGE MEDICATIONS: 1. Ibuprofen 600 mg every 8 hours as needed. 2. Colchicine 0.6 mg daily. 3. I will also send over doxycycline 100 mg twice daily. DISCHARGE PLAN: The patient will be discharged home, he is to follow with his PCP on 05/25/17. He should complete his course of colchicine and ibuprofen as needed as well as doxycycline. He should return to the ED if symptoms recur. The PCP should also make sure to follow up on the ultrasound, which showed echogenic right kidney suggestive of medical renal disease. PHYSICAL EXAMINATION ON THE DATE OF DISCHARGE: Pleasant gentleman, lying in bed , in no distress. Vital Signs: Temperature 98.2 degrees, heart rate is 42 beats per minute, respiratory rate 18 breaths per minute, pulse ox 99%, blood pressure 122/64. HEENT: Normocephalic, atraumatic. Pupils are equal, round, and reactive to light. Moist mucous membranes. Neck: Supple. No JVD, bruits, palpable thyroid, or lymphadenopathy. Chest: Clear to auscultation and percussion bilaterally. Cardiovascular: S1, S2 appreciated. Regular rate and rhythm. No murmurs, gallops, or rubs. Abdominal Exam: Positive bowel sounds in all 4 quadrants. Soft, nontender, nondistended. No hepatosplenomegaly. Extremities: No cyanosis, clubbing, or edema. +2 pulses bilaterally. Neuro: Alert and oriented x3. Moves all extremities. Skin: No rash or abnormalities. TIME SPENT: Over 45 minutes was spent on this discharge, more than 25 minutes was spent in direct [id number] contact with the patient in evaluation, physical exam, and counseling, and coordination of care. [id number] #: [id number] MTDD
== END 2017-05-23 15:20 | disposition home or self-care (01) | DRG 316 ==
LOC: ED 03:12 → UNDOADMIN 07:07 → MEDTELE 07:07
PROVIDERS: ADMIT Internal Medicine; ATTEND Internal Medicine
DX: I30.8 Other forms of acute pericarditis (principal); D69.6 Thrombocytopenia, unspecified; R74.0 Nonspecific elevation of levels of transaminase and lactic acid dehydrogenase [LDH]; G43.909 Migraine, unspecified, not intractable, without status migrainosus; F17.210 Nicotine dependence, cigarettes, uncomplicated; R74.8 Abnormal levels of other serum enzymes; Z82.49 Family history of ischemic heart disease and other diseases of the circulatory system
CPT/HCPCS: 36415; 71010; 71020; 71275; 76705; 78452; 80053; 80074; 80307; 81003; 82550; 82553; 83036; 83605; 84484; 85025; 85379; 85610; 85652; 85730; 86140; 86141; 86618; 87040; 87340; 87502; 93005; 93017; 93306; A9270-GY; A9502; J0696; J0780; J1650; J2270; J2785; Q9967